=== PATIENT | female | born 1985 | race Caucasian/White ===

== ENCOUNTER 2018-11-24 16:37 | Observation (INO) ==
--- NOTE | 2018-11-24 18:24 | OB/GYN Progress Note ---
Date of Encounter: 11/24/18 Time of Encounter: 18:22 - Assessment and Plan (1) 34 weeks gestation of Current Visit: Yes Status: Acute (2) Uterine contractions Current Visit: Yes Status: Acute Cervix remains closed, no contractions on monitor only had 1 contraction with emesis while here. Discharged home encouraged to push fluids, with labor and when to return to triage precautions. Zofran prescription sent to her pharmacy for nausea and vomiting Subjective - Subjective Interval history: 34+ weeks gestation presents to triage with complaints of back pains wrapping around to abdomen approximately every hour today. Patient states about every 45 minutes she is getting her back pain wrapping around her abdomen followed by and emesis. Patient states they have been occurring today and only today. Denies dysuria, contractions, vaginal bleeding. Patient states she does have good movement and reports occasional wetness to her underwear but think she is urinating, but unsure. Antepartum ROS: loss of fluid, movement normal, contractions, no vaginal bleeding Objective - Vital Signs Vital Signs: Intake and Output 11/24/18 11/24/18 11/24/18 07:59 15:59 23:59 Other: Weight 158.8 kg Patient Weight 11/24/18 23:59 Weight 158.8 kg - Exam FHR: auscultation normal FHR comments: Baseline 120 Cervical dilation: Closed/thick/high
== END 2018-11-24 18:23 | disposition home or self-care (01) ==
LOC: 1NENULAB
PROVIDERS: ADMIT Advanced Practice Midwife; ATTEND Advanced Practice Midwife

== ENCOUNTER → 2018-12-09 21:02 | Observation (INO) ==
[2018-12-09 17:06] LABS: Amphetamine Screen,Urine Negative ng/mL (Cutoff=1000); Barbiturate Screen,Urine Negative ng/mL (Cutoff=200); Benzodiazepines Screen,Urine Negative ng/mL (Cutoff=200); Cannabinoid Screen,Urine Negative ng/mL (Cutoff = 50); Cocaine Screen,Urine Negative ng/mL (Cutoff= 300); Opiate Screen,Urine Negative ng/mL (Cutoff=300); Phencyclidine Screen,Urine Negative ng/mL (Cutoff=25)
--- NOTE | 2018-12-09 18:11 | OB/GYN Progress Note ---
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 Hx of 2 prior C/S', planning for 3rd in a few weeks. No sign of labor or ROM today. R NST. Normal growth and CHRISTA. Labor precautions given. [facility] recommended. (2) Abdominal pain affecting Current Visit: Yes Status: Acute Pain is worse with movement which is concerning for abdominal wall pain. Placenta appears normal on US. There is no vaginal bleeding. Recommend Tylenol and heat alternating with ice to the area for relief of pain. No strenuous activity. F/up in the office in 1-2 days. Subjective - Subjective Principal diagnosis: superficial left lower quadrant pain Interval history: 33yo at 36 5/7 wks EDC determined by LMP c/w 1st tri US presents with 24 hours of acute abdominal pain in the left lower quadrant more to the left of the umbilicus and slightly inferior to the level of the umbilicus. She reports palpating a lump in this area early in the . It has never really bothered her but the pain is in this location. She has felt ctxs-tightening lasting about one minute at times. No LOF/vb. Normal FM. It's a boy! She is planning a R C/S w/ TL. Over the last month, she has had nausea and vomiting with meals and has an US w/ cholelithiasis. She is being referred to Gen Surg for possible chronic cholecystitis. She is taking a PPI with some improvement but has poor appetite and early satiety. No RUQ pain. PMHx: cholelithiasis, obesity BMI 52, smoking PSHx: 2 C/S'-2nd w/ Maylard incision OBHx: G1 FT C/S for uterine didelphys, G2 FT R C/S GynHx: uterine didelphys, reg menses Meds: PNV, PPI All: PCN Objective - Vital Signs Vital Signs: VSS - Exam FHR: other (R NST, no ctxs) Abdomen: Present: soft, gravid, tenderness (area of concern tender to palpation, no mass appreciated in tender area, no tenderness over well healed Phannenstiel incision) Uterus: Present: tenderness (in area of concern)
== END | disposition home or self-care (01) ==
LOC: 1NENULAB
PROVIDERS: ADMIT Advanced Practice Midwife; ATTEND Advanced Practice Midwife

== ENCOUNTER 2018-12-26 05:53 | Inpatient (IN) ==
[2018-12-26] MEDS ORDERED: Metoclopramide 10 MG/2 ML VIAL IVP PRN ×2 (05:56→12:54)
[2018-12-26] MEDS ORDERED: Famotidine 20 MG/2 ML VIAL IVP PRN (05:56)
[2018-12-26] MEDS ORDERED: Naloxone 0.4 MG/ML INJ IVP PRN ×2 (05:56→07:40)
[2018-12-26] MEDS ORDERED: Clindamycin 900 MG/50 ML 900 MG/50 ML IV.SOLN IVPB ONE (05:58)
[2018-12-26] MEDS ORDERED: Ringers Solution, Lactated 1,000 ML IVC ONE (05:58)
[2018-12-26] MEDS ORDERED: Ringers Solution, Lactated 1,000 ML IVC SCH (06:00)
[2018-12-26] MEDS ORDERED: Ringers Solution, Lactated 1,000 ML ONE (06:00)
[2018-12-26 06:38] LABS: Basophils # 0.1 K/mcL (0.0-0.2); Basophils % 0.3 %; Eosinophils # 0.3 K/mcL (0.0-0.6); Eosinophils % 1.8 %; Hematocrit 39.2 % (35.3-44.9); Immature Granulocytes % 0.8 % (0-4); Lymphocytes % 18.4 %; Mean Corpuscular HGB Conc 33.2 g/dL (31.6-35.5); Mean Corpuscular Hemoglobin 32.3 pg (28.0-33.3); Mean Corpuscular Volume 97.5 fL (83.0-100.0); Mean Platelet Volume 9.8 fL (9.4-12.4); Monocytes # 1.2 K/mcL (0.0-1.3); Monocytes % 7.4 %; Neutrophils # 11.8 K/mcL (1.6-8.9); Platelet Count 357 K/mcL (140-400); Red Blood Count 4.02 M/mcL (3.82-4.97); Red Cell Distribution Width 12.5 % (11.5-14.5); Segmented Neutrophils % 71.3 %; White Blood Count 16.6 K/mcL (4.3-11.1)
[2018-12-26] MEDS ORDERED: *HR* Morphine Sulfate/PF 10 MG/10 ML AMPUL ONE (07:20)
[2018-12-26] MEDS ORDERED: *HR* FentaNYL (PF) 100 MCG/2 ML VIAL ONE (07:20)
[2018-12-26] MEDS ORDERED: Ondansetron 4 MG/2 ML VIAL ONE (07:21)
[2018-12-26] MEDS ORDERED: Dexamethasone 4 MG/ML VIAL ONE (07:21)
[2018-12-26] MEDS ORDERED: *HR* Oxytocin 10 UNIT/ML VIAL IM ONE (07:21)
[2018-12-26] MEDS ORDERED: *HR* Phenylephrine 10 MG/ML VIAL ONE (07:23)
[2018-12-26] MEDS ORDERED: EPHEDrine 50 MG/ML VIAL ONE (07:24)
[2018-12-26] MEDS ORDERED: *HR* OxyCODONE/APAP 5/325 TABLET PO PRN ×2 (07:40→12:54)
[2018-12-26] MEDS ORDERED: Ondansetron 4 MG/2 ML VIAL IVP PRN ×2 (07:40→12:54)
--- NOTE | 2018-12-26 07:40 | Anesthesia Evaluation PreOp ---
Date of Encounter: 12/26/18 Time of Encounter: 07:40 - Past History Planned Operation: Repeat Cardiac History: Denies any Significant Hx Pulmonary History: Smoker LIFT TEAM TECHNICIAN History: Denies Any Significant HX Other Medical History: Other (Morbid Obesity) Anesthesia History: No Prior Anesthetic Complications : Yes (39 weeks 1 day) Test: Positive Alcohol Use: none Drug use: none Medications and Allergies Omeprazole [PriLOSEC] 12/26/18 [History] Allergy/AdvReac Type Severity Reaction Status Date / Time Penicillins Allergy Swelling Verified 12/26/18 05:59 of Lip/Tongue/Throat - Meds/Allergy Pre-op Review Medications Reviewed: Yes Allergies Reviewed: Yes Beta Blockers on Current Med List: No Anesthesia Results - Labs 12/26/18 06:10 Laboratory Tests 05/13/18 06/21/18 12/26/18 16:07 08:06 06:10 Hgb 13.0 Hct 39.2 Plt Count 357 Sodium 137 Potassium 3.7 BUN 4 L Creatinine 0.55 L Anesthesia Exam O2 Sat Height 1.75 m Weight 155.582 kg Height: 5'9 Weight: 155 kg NPO (# of Hours): MN Pain Scale: 0 - HEENT Pupil (Motor): Pupils equal, EOMI Mallampati: II Teeth: Normal Oral Opening: Greater than 3 - LIFT TEAM TECHNICIAN LOC: Oriented LIFT TEAM TECHNICIAN Motor: Normal RUE, Normal LUE, Normal RLE, Normal LLE, Normal Face LIFT TEAM TECHNICIAN Sensory: Normal: RUE, LUE, RLE, LLE, Face - Cardiac Rhythm: Regular Murmur: None JVD: No Carotid Bruit: No - Pulmonary Breath Sounds: bilateral Clear Respiratory Effort: Symmetrical Anesthesia Assess/Plan ASA Score: 3 (Tobacco MO) Level of consciousness: Cooperative, Oriented Anesthetic Plan: Spinal Autologous Blood: No Monitoring Plan: Standard Monitors Recovery Plan: PACU (Discussed SAB, possible GA, agrees to proceed)
--- NOTE | 2018-12-26 07:42 | OB/GYN History & Physical ---
Date of Encounter: 12/26/18 Time of Encounter: 07:44 Assessment and Plan (1) 39 weeks gestation of Current visit: Yes Status: Chronic (2) Previous section Current visit: Yes Status: Chronic History of Present Illness HPI: Ms. Leos is a 33 year old female Patient is a 33-year-old 3 para 1 AB 1 white female enters today for repeat section. She denies spontaneous rupture membranes, contractions, vaginal bleeding. She been followed in my office without any significant problems. She reports active fetus. She also desires permanent sterilization. Past Med Surg Social Fam HX - Past Medical History Medical history: no medical history Psychiatric history: no psych history - Past Surgical History Surgical History: Additional surgical history: T&A - Social History Smoking Status: Current every day smoker Packs per day: 1/2ppd Alcohol use: none Drug use: none - Family History Sister Living Status: Still Living Hx Family Cardiac Disorders: No Hx Family Respiratory Disorders: No Hx Family Cancer: No Hx Family GI Disorders: No Hx Family Genitourinary Disorders: No Hx Family Endocrine Disorder: No Hx Family Musculoskeletal Disorders: No Hx Family Neuromuscular Disorders: No Hx Family Neurologic Disorders: No Hx Family HEENT Disorders: No Hx Family Autoimmune Disorders: No Hx Family Reproductive Disorders: No Hx Family Psychosocial Disorders: No Hx Family Medical Disorders: No Obstetrical History - Pregnancies : 3 Para: 1 Ab's: 1 Medications and Allergies Omeprazole [PriLOSEC] 12/26/18 [History] Allergy/AdvReac Type Severity Reaction Status Date / Time Penicillins Allergy Swelling Verified 12/26/18 05:59 of Lip/Tongue/Throat Review of System OB All systems PM: reviewed and no additional remarkable complaints except as stated - Genitourinary Genitourinary: amenorrhea - Menstruation Menstruation: amenorrhea Exam - Constitutional Constitutional: well developed, well nourished, no acute distress, obese - HEENT HEENT: Normocephaly - Neck Neck exam: full ROM - Lungs Respiratory exam: CTAB - Cardiovascular Cardiovascular exam: RRR - Abdomen Abdomen: Present: gravid, non tender - Extremities Extremities exam: full ROM Deep Tendon Reflex Grade: 2+ Normal - Uterus Uterus exam: Present: enlarged Results Result Diagrams: 12/26/18 06:10 Abnormal lab results WBC 16.6 K/mcL (4.3-11.1) H 12/26/18 06:10 Neutrophils # 11.8 K/mcL (1.6-8.9) H 12/26/18 06:10 All other labs normal. - Attending Attestation jordan hooker md facog
[2018-12-26] MEDS ORDERED: Ketorolac 30 MG/ML VIAL ONE (08:37)
[2018-12-26 09:32] LABS: Amphetamine Screen,Urine Negative ng/mL (Cutoff=1000); Barbiturate Screen,Urine Negative ng/mL (Cutoff=200); Benzodiazepines Screen,Urine Negative ng/mL (Cutoff=200); Cannabinoid Screen,Urine Negative ng/mL (Cutoff = 50); Cocaine Screen,Urine Negative ng/mL (Cutoff= 300); Opiate Screen,Urine Negative ng/mL (Cutoff=300); Phencyclidine Screen,Urine Negative ng/mL (Cutoff=25)
[2018-12-26] MEDS ORDERED: Oxytocin 20 units/ LR 1000 mL 20 UNIT/1,000 ML BAG IVC ONE (09:37)
--- NOTE | 2018-12-26 11:23 | OB/GYN Procedure Note ---
Section - Preop diagnosis: desires repeat , desires sterilization Post-op diagnosis: same Procedure: repeat low transverse, bilateral tubal ligation Surgeon: Yannick Hernández Blood Loss: 300 Was there an clerical assistant present: No Anesthesiologist: Tony Castaneda Attendant [facility] Anesthesia Type: Spinal section complications: none Disposition: PACU Specimens: Placenta (hold), Right tube segment, Left tube segment - (s) A Infant Delivery Date: 12/26/18 Delivery Time: 08:33 Presentation: vertex Position: OA Route of delivery: vacuum extraction Gender: Male Viability: Viable Pounds: 8 Ounces: 15 Gram Weight: 4.04 kg at 1 minute: 8 at 5 minutes: 9 Shoulder Dystocia: not encountered Placenta: complete extraction - Narrative Narrative: Patient taken to the operating room. After satisfactory spinal anesthesia was achieved, patient placed in supine position, Jeter catheter inserted, and prepped and draped in usual manner. After appropriate timeout was obtained, abdomen was entered through a standard Maylard incision. The Johny retractor was placed. The bowels packed superiorly away from operative field. Peritoneum overlying the lower uterine segment was incised in U-shaped fashion. Uterine cavity was entered sharply extended laterally. Fluid was clear. With fundal pressure and vacuum assistance the head was delivered. The vacuum was placed on the occiput. 2 pulls lasting a total 30 seconds were done. Once the head was delivered, the infant was suctioned. The remainder of the shoulders and torso were delivered . The umbilical cord doubly clamped and cut and the infant was handed to nursery staff for further evaluation. The placenta was removed. Uterus closed with 0 Monocryl in a single layer. Attention then turned to the tubal sterilization. Fallopian tubes on both sides were resected including the fimbria sent to pathology for analysis. Pedicles ligated using 2-0 chromic. After assurance of hemostasis, the packs and retractor were removed. The abdomen was closed standard fashion using using looped PDS on the fascia, 2-0 Vicryl on the subcutaneous, 3-0 Monocryl in the skin. Sterile dressing was applied. Patient did well was taken to recovery in satisfactory condition. Counts were correct.
[2018-12-26] MEDS ORDERED: Acetaminophen IV 1,000 MG/100 ML INFUS..BTL IVPB SCH (12:00)
[2018-12-26] MEDS ORDERED: Acetaminophen 325 MG TABLET PO PRN (12:54)
[2018-12-26] MEDS ORDERED: Simethicone 80 MG TAB.CHEW PO PRN (12:54)
[2018-12-26] MEDS ORDERED: Rho Immune Globulin 1,500 UNIT SYRINGE IM ONE (12:54)
[2018-12-26] MEDS ORDERED: Oxytocin 20 units/ LR 1000 mL 20 UNIT/1,000 ML BAG IVC SCH (12:54)
[2018-12-26] MEDS ORDERED: Sennosides 8.6 MG TABLET PO PRN (12:54)
[2018-12-26] MEDS: Ibuprofen 600 MG TABLET PO PRN (19:39)
--- NOTE | 2018-12-26 21:26 | Anesthesia Evaluation Post Op ---
Date of Encounter: 12/26/18 Time of Encounter: 10:00 - Lungs Lungs: Clear Ascult./Percussion - Airway Airway: Non-obstructed - Cardiovascular Regular Rate - Mental Status Mental Status: Alert & Oriented, Answers Appropriately - Pain Pain Scale: 0 - Nausea Vomiting Nausea Vomiting: Not Present - Hydration Hydration: NPO, Jeter catheter - Discharge PostOp Status: Transfer Patient to floor
[2018-12-27 03:42] LABS: Basophils # 0.1 K/mcL (0.0-0.2); Basophils % 0.3 %; Eosinophils # 0.2 K/mcL (0.0-0.6); Eosinophils % 1.1 %; Hematocrit 33.9 % (35.3-44.9); Hemoglobin 11.5 g/dL (11.5-15.4); Immature Granulocytes % 0.7 % (0-4); Lymphocytes # 3.7 K/mcL (0.6-4.6); Lymphocytes % 22.3 %; Mean Corpuscular HGB Conc 33.9 g/dL (31.6-35.5); Mean Corpuscular Hemoglobin 33.1 pg (28.0-33.3); Mean Corpuscular Volume 97.7 fL (83.0-100.0); Mean Platelet Volume 9.8 fL (9.4-12.4); Monocytes # 1.2 K/mcL (0.0-1.3); Monocytes % 7.1 %; Neutrophils # 11.4 K/mcL (1.6-8.9); Platelet Count 300 K/mcL (140-400); Red Blood Count 3.47 M/mcL (3.82-4.97); Red Cell Distribution Width 12.3 % (11.5-14.5); Segmented Neutrophils % 68.5 %; White Blood Count 16.6 K/mcL (4.3-11.1)
[2018-12-27 08:30] VITALS: BP 90/58
[2018-12-27] MEDS: Ibuprofen 600 MG TABLET PO PRN (08:39)
[2018-12-27] MEDS ORDERED: Prenatal Vit/FA 1 EACH TABLET PO SCH (09:00)
--- NOTE | 2018-12-27 09:58 | Discharge Summary ---
Date of Encounter: 12/27/18 Time of Encounter: 09:56 - Discharge Diagnosis (1) Status post repeat low transverse section Priority: Primary Status: Acute Comments: Continue routine postop/ care discharge home today per patient request follow up with Dr. Byrne in 2 weeks for incision check - Discharge Medications Prescriptions: New Docusate [Colace] 100 mg PO BID #60 capsule Ibuprofen [Motrin] 600 mg PO Q6HR PRN #60 tablet PRN Reason: Cramping OxyCODONE/APAP 5/325 [Percocet 5/325 MG] 1 each PO Q6HR PRN 5 Days #20 tablet PRN Reason: Moderate pain 4-6 Discontinued Omeprazole [PriLOSEC] Home Medications: Docusate [Colace] 100 mg PO BID #60 capsule 12/27/18 [Rx] Ibuprofen [Motrin] 600 mg PO Q6HR PRN #60 tablet 12/27/18 [Rx] OxyCODONE/APAP 5/325 [Percocet 5/325 MG] 1 each PO Q6HR PRN 5 Days #20 tablet 12/27/18 [Rx] Allergies/Adverse Reactions: Allergy/AdvReac Type Severity Reaction Status Date / Time Penicillins Allergy Swelling Verified 12/26/18 05:59 of Lip/Tongue/Throat Data Procedures and tests throughout hospitalization: Laboratory Tests 12/26/18 12/26/18 12/27/18 06:10 06:10 03:18 WBC 16.6 H 16.6 H RBC 4.02 3.47 L Hgb 13.0 11.5 D Hct 39.2 33.9 L MCV 97.5 97.7 MCH 32.3 33.1 MCHC 33.2 33.9 RDW 12.5 12.3 Plt Count 357 300 MPV 9.8 9.8 Immature Gran % 0.8 0.7 Seg Neutrophils % 71.3 68.5 Lymphocytes % 18.4 22.3 Monocytes % 7.4 7.1 Eosinophils % 1.8 1.1 Basophils % 0.3 0.3 Neutrophils # 11.8 H 11.4 H Lymphocytes # 3.0 3.7 Monocytes # 1.2 1.2 Eosinophils # 0.3 0.2 Basophils # 0.1 0.1 Urine Opiates Screen Negative Ur Buprenorphine Scrn Negative Ur Barbiturates Screen Negative Ur Phencyclidine Scrn Negative Ur Amphetamines Screen Negative U Benzodiazepines Scrn Negative Urine Cocaine Screen Negative U Marijuana (THC) Screen Negative Ur Drug Screen Interp See Below Labs on day of discharge: Labs from last 24 hours 12/27/18 03:18 WBC 16.6 H RBC 3.47 L Hgb 11.5 D Hct 33.9 L MCV 97.7 MCH 33.1 MCHC 33.9 RDW 12.3 Plt Count 300 MPV 9.8 Immature Gran % 0.7 Seg Neutrophils % 68.5 Lymphocytes % 22.3 Monocytes % 7.1 Eosinophils % 1.1 Basophils % 0.3 Neutrophils # 11.4 H Lymphocytes # 3.7 Monocytes # 1.2 Eosinophils # 0.2 Basophils # 0.1 Date of admission: 12/26/18 05:53 Primary care physician: Hillary Child Discharging clinician: Shikha Simon Anticipated date of discharge: 12/27/18 - Patient Status Disposition: Home, Self-Care Condition: Good Functional capacity at discharge: independent ambulation - Discharge Instructions Follow Up With: Hillary Child MD [Primary Care Provider] - Yannick Byrne MD [Partnered Physician] - - Diet and Activity Activity: increase activity as tolerated Diet: regular diet Hospital Course Procedures: OARRS report reviewed per DORI Reza prior to discharge Reason for admission: section Delivery: section Episiotomy: none Laceration: none Other procedures: tubal ligation complications: none Discharge diagnosis: IUP at term delivered Sanborn baby: male (bottle feeding) Time Attestation: Total time spent providing and/or coordinating discharge services: Time Spent: Less than 30 minutes - VTE Documentation of Mechanical Device: Intermittent pneumatic compression device Exam - Constitutional Vitals: Temp Pulse Resp BP Pulse Ox 97.6 F 60 16 90/58 97 12/27/18 08:00 12/27/18 08:00 12/27/18 08:00 12/27/18 08:00 12/27/18 04:40 General appearance IM: A&O X 3, pleasant, obese, answers questions appropriately - Respiratory Respiratory exam: Present: CTAB - Cardiovascular Cardiovascular exam IM: Present: RRR, +S1, +S2 - GI/Abdominal GI/Abdominal exam IM: normal bowel sounds - Uterine Tone: Firm Uterus Position: 2 Fingers Below Umbilicus, Midline - Extremities Exam Extremities exam IM: Present: full ROM, normal capillary refill, normal inspection - Neurological Exam Neurological exam: alert, oriented X3, reflexes normal
== END 2018-12-27 13:27 | disposition home or self-care (01) | DRG 785 ==
LOC: 1NENULAB 05:53 → 1NENUOBS 11:59
PROVIDERS: ADMIT Obstetrics & Gynecology; ATTEND Obstetrics & Gynecology